=== PATIENT | male | born 1995 | race Caucasian/White ===

== ENCOUNTER 2023-06-30 18:57 | Emergency (ER) | payer BC, SELFPAY ==
[2023-06-30 19:00] VITALS: BP 132/78; PULSE 88; RESP 18; TEMP 36.6; O2SAT 99
--- NOTE | 2023-06-30 19:23 | ED.GENADULT ---
HPI - General Adult General Chief complaint: Wound/Laceration Stated complaint: hand laceration Time Seen by Provider: 06/30/23 19:15 History of Present Illness HPI narrative: this is a 27-year-old male presenting with laceration was right hand. Is trying to cut cheese when he stabbed himself in between his and index finger with a steak knife. Unknown last tetanus. No other injuries. No numbness tingling with this and. Related Data Allergies Allergy/AdvReac Type Severity Reaction Status Date / Time No Known Allergies Allergy Verified 06/30/23 19:22 Exam Narrative: APPEARANCE: No apparent distress. Head: atraumatic. EYES: EOMI, NOSE: Atraumatic NECK: Trachea midline RESPIRATORY: No increased rate of breathing CARDIOVASCULAR: RRR, ABDOMINAL: Non-distended MUSCULOSKELETAl: No obvious deformities NEURO: Alert. Moving 4/4 extremities SKIN:: 2 cm laceration skin between the thumb the index finger. No involvement of deeper structures. Full function in all directions of the index finger in the thumb. Sensation intact. Cap refill less than 2 seconds PSYCHIATRIC: Normal affect Medical Decision Making [facility] Narrative Medical decision making narrative: -Course: 27-year-old presenting with 2 cm laceration. Wound was cleaned and sutured. tetanus given. Discharged with return precautions Keflex pain control. Return in 10-14 days for suture removal. -DDX includes but is not limited to: -Procedures: 2 cm simple laceration repair with 4-0 nonabsorbable sutures x3 on the right hand between the thumb and index finger -Interventions: Tdap, Motrin Tylenol -Shared decision making / Disposition: discharged -RX Keflex, Motrin, Tylenol Discharge Plan Discharge Clinical Impression: Laceration Patient Disposition: Home, Self-Care Condition: Stable Instructions: Antibiotic Form, Care For Your Stitches (ED), Laceration (ED) Additional Instructions: Please take Keflex. Please use Motrin Tylenol for pain. Return if you develop redness/swelling other signs of infection. Sutures should be removed in 10-14 days. Prescriptions: New acetaminophen 500 mg tablet 1,000 mg PO TID PRN (Reason: agatha) 7 Days Qty: 42 0RF ibuprofen 800 mg tablet 800 mg PO TID PRN (Reason: pain) 7 Days Qty: 21 0RF cephalexin 500 mg capsule 500 mg PO Q12H Qty: 14 0RF Follow-up/Referrals: Harms,Lenin Randolph M.D. [Primary Care Provider] -
[2023-06-30] MEDS: TETANUS,DIPHTHERIA,AC PERTUSSIS ADULT 0.5 ML (ADACEL) IM (19:27)
[2023-06-30] MEDS: ACETAMINOPHEN 500 MG TABLET 1000 MG PO (19:28)
[2023-06-30] MEDS: IBUPROFEN 400 MG TABLET 800 MG PO (19:29)
[2023-06-30 19:45] VITALS: BP 130/72; PULSE 84; RESP 18; O2SAT 99
== END 2023-06-30 19:45 | disposition home or self-care (01) ==
PROVIDERS: Emergency Provider Emergency Medicine; PCP Family Medicine
DX: S61.411A Laceration without foreign body of right hand, initial encounter (principal); W26.0XXA Contact with knife, initial encounter; Z23 Encounter for immunization
CPT/HCPCS: 12001; 90471; 90715; 99283; A9270

== ENCOUNTER 2025-01-10 16:04 | Emergency (ER) | payer BC, SELFPAY ==
[2025-01-10 16:17] VITALS: BP 135/66; PULSE 76; RESP 16; TEMP 37; O2SAT 100
[2025-01-10 16:24] LABS: EDSTREPNEGPOS1 Positive (Negative)
--- NOTE | 2025-01-10 17:08 | ED.URI ---
HPI - URI/Sore Throat General Chief Complaint: Upper Respiratory Infection Stated Complaint: Sore Throat/Body Aches Time Seen by Provider: 01/10/25 16:45 Source: patient and RN notes reviewed Mode of arrival: ambulatory Limitations: no limitations History of Present Illness HPI Narrative: 29-year-old male patient presents Express Care complaining of sore throat, body aches fevers since yesterday. Patient denies any other upper respiratory symptoms, cough, chest pain, shortness of breath, nausea, vomiting, diarrhea, abdominal pain, or any other symptoms. Patient has been alternate with Tylenol and ibuprofen to help with symptoms. Patient denies any significant past medical history. Related Data Allergies Allergy/AdvReac Type Severity Reaction Status Date / Time No Known Allergies Allergy Verified 01/10/25 16:15 Review of Systems Review of Systems: CONSTITUTIONAL: Denies chills, or sweats. Positive for fevers and body aches. EYES: Denies visual changes, redness, or discharge. ENT: Denies rhinorrhea, congestion, or otalgia. Positive for sore throat. CARDIOVASCULAR: Denies chest pain, palpitations, or edema. RESPIRATORY: Denies cough or dyspnea. GASTROINTESTINAL: Denies abdominal pain, nausea, vomiting, or diarrhea. GENITOURINARY: Denies dysuria or hematuria. SKIN: Denies rash or itching. MUSCULOSKELETAL: Denies back pain, joint pain, or myalgia. NEUROLOGIC: Denies headache, numbness, or weakness. PSYCHIATRIC: Denies anxiety or depression. All other systems reviewed are negative, except as documented in HPI. PMFSH Comments At the time of my signature, I reviewed and agree with the nursing past medical, surgical, social, and family history. There is no relevant family history pertinent to the patient complaint. Exam Narrative: GENERAL: This is a well-nourished, well-developed adult, in no apparent distress. They are non ill-appearing, nontoxic appearing. HEAD: normocephalic, atraumatic. EYES: Sclera clear/white. Conjunctiva normal. Vision is grossly intact. Extraocular movements intact EARS: External ears normal, auditory canals clear and without drainage, TMs normal without perforation. Hearing grossly intact. NOSE: External nose normal with no obvious nasal discharge, nasal turbinates without redness, no rhinorrhea. THROAT: Mucous membranes moist, posterior pharynx erythematous. Uvula midline. NECK: Neck supple, non-tender without lymphadenopathy, masses or thyromegaly. CARDIOVASCULAR: Regular rate and rhythm without murmurs, gallops, or rubs. RESPIRATORY: Clear to auscultation. Breath sounds equal bilaterally. No wheezes, rales, or rhonchi. SKIN: warm, Dry, intact with no suspicious lesions or rash, good texture and turgor. NEURO: awake, alert, and oriented to person, place and time. There were no obvious focal neurologic abnormalities. EXTREMITIES: No joint tenderness, effusion, or edema noted. BACK: Nontender without deformity. Course Course Emergency Course: Portions of this record may have been created with voice recognition software Level of Care: Express Care Visit Vital Signs Vital signs: Vital Signs Temperature 98.6 F 01/10/25 16:17 Pulse Rate 76 01/10/25 16:17 Respiratory Rate 16 01/10/25 16:17 Blood Pressure 135/66 01/10/25 16:17 Pulse Oximetry 100 01/10/25 16:17 Oxygen Delivery Room Air 01/10/25 16:17 Temperature 98.6 F 01/10/25 16:17 Pulse Rate 76 01/10/25 16:17 Respiratory Rate 16 01/10/25 16:17 Blood Pressure 135/66 01/10/25 16:17 Pulse Oximetry 100 01/10/25 16:17 Oxygen Delivery Room Air 01/10/25 16:17 Reviewed MDM - URI/Sore Throat MDM Narrative Medical decision making narrative: Rapid strep positive. Will treat with amoxicillin. Discussed physical exam findings. Advised supportive measures and signs/symptoms to go to the ER. Pt is appropriate for outpt treatment and f/u. Differential Diagnosis Differential diagnosis: Likely upper respiratory infection, sinusitis, viral infection and pharyngitis Lab Data Attestation: I reviewed the patient's lab results. Labs: Lab Results 01/10/25 Range/Units 16:14 POC Grp A Strep Screen Positive (Negative) Critical Care Time Critical Care Time Critical Care Time: No Discharge Plan Discharge Clinical Impression: Pharyngitis Qualifiers: Pharyngitis/tonsillitis etiology: streptococcus Qualified Code(s): J02.0 - Streptococcal pharyngitis Patient Disposition: Home Condition: Stable Instructions: Antibiotic Form, Strep Throat (ED) Additional Instructions: You tested positive for strep throat. ?Please take the amoxicillin as prescribed until gone. ?You will be contagious for 24 hours after starting the medication. ?After 24 hours on antibiotics throw tooth brush away and start using a new one. Wash your sheets and cup/water bottle that is used daily. Do not share drinks. Take Tylenol or Ibuprofen as needed for pain or fever, follow instructions on the bottle. Rest and stay hydrated. ?Follow up with your PCP in 3 days if symptoms are not improving. ?Go to the ER immediately if you develop worsening symptoms such as shortness of breath, difficulty swallowing. ? Patient Language: Swedish Prescriptions: New amoxicillin 500 mg tablet 500 mg PO Q12H 10 Days Qty: 20 0RF No Action acetaminophen 500 mg tablet 1,000 mg PO TID PRN (Reason: agatha) 7 Days Qty: 42 0RF ibuprofen 800 mg tablet 800 mg PO TID PRN (Reason: pain) 7 Days Qty: 21 0RF cephalexin 500 mg capsule 500 mg PO Q12H Qty: 14 0RF Follow-up/Referrals: Harms,Lenin Randolph M.D. [Primary Care Provider] Time of Disposition: 16:56
--- OUTSIDE RECORDS SUMMARY | 2025-01-10 18:30 | XMS_ITS | Clinical Summary ---
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 May reduce to 2-3 times weekly when sweating and odor is reduced. 60 mL 1 2 Active Additional Information Patient not taking.Reported on 05/20/2024 cetirizine (ZyrTEC) 10 mg tablet Take 1 tablet (10 mg total) by mouth daily Active triamcinolone (KENALOG) 0.1 % cream Apply to affected area 1-2 times daily as needed. Avoid face and groin. 80 g 5 3 Active UNABLE TO FIND Immune Shot every month it has Vitamin B12, vitamin C last shot 02/16/2024 Active cefdinir (OMNICEF) 300 mg capsule Take 1 capsule (300 mg total) by mouth 2 (two) times a day 20 capsule 5 Active mometasone (NASONEX) 50 mcg/actuation nasal spray Administer 2 sprays into each nostril 2 (two) times a day 102 g 4 5 Active Active Problems Problem Noted Date Diagnosed Date Fever and chills 05/20/2024 Assessment & Plan (05/20/2024 10:28 AM SURFACE BOSS): COVID and influenza testing negative today. No abnormal findings on exam. Lungs clear, no measured fever. No evidence of ear infection. Discussed continued symptomatic treatment with rest, fluids and OTC fever/pain reducing medications. Follow-up if no improvement in the next 1-2 weeks or sooner if experiencing any new or worsening symptoms. Class 1 obesity due to exces s calories without serious comorbidity with body mass index (BMI) of 32.0 to 32.9 in adult 05/20/2024 Assessment & Plan (05/20/2024 10:29 AM SURFACE BOSS): Encouraged healthy diet and regular exercise Allergic rhinitis 05/20/2024 Assessment & Plan (05/20/2024 10:28 AM SURFACE BOSS): Patient with frequent allergy symptoms, runny nose, ear fullness, sore throat nasal congestion. States he is taking Zyrtec daily. He desires allergy testing, referral placed to allergy/immunology. Previously prescribed Flonase, states he did not tolerate Flonase as it caused him to feel dizzy. Will try Nasonex and monitor response. Immunizations Immunization Administration Dates Next Due Influenza, Unspecified 02/18/2024(Deferr ed: Patient Refused),11/22/2022(Deferred: Patient Refused),05/15/2022(Deferred: Patient Refused),11/22/2021(Deferred: Patient Refused),11/05/2021(Deferred: Patient Refused),11/05/2021(Deferred: Patient Refused),03/24/2021(Deferred: Patient Refused),11/22/2020(Deferred: Patient Refused),11/22/2020(Deferred: Patient Refused),03/24/2020(Deferred: Patient Refused),02/01/2019(Deferred: Patient Refused),03/30/2018(Deferred: Patient Refused),03/24/2018(Deferred: Patient Refused),03/25/2017(Deferred: Patient Refused) Tdap 06/30/2023 Medical History Medical History Date Comments Acid reflux Allergic rhinitis Family History Medical History Relation Name Comments Crohn's disease Father Crohn's dise ase; Other Mother Alive and well; Relation Name Status Comments Father Mother Alive Social History Tobacco Use Types Packs/Day Years Used Date Smoking Tobacco: Never Smokeless Tobacco: Never Tobacco Cessation:Counseling Given: Not Answered Alcohol Use Standard Drinks/Week Comments No 0 (1 standard drink = 0.6 oz pur e alcohol) AUDIT-C Answer Date Recorded Frequency of Alcohol Consumption Not on file 09/09/2022 Q2: How many drinks containi ng alcohol do you have on a typical day when you are drinking? Patient does not drink Frequency of Binge Drinking Not on file 08/22 PHQ-2 Answer Date Recorded PHQ-2 Total Score (If total score is 3 or more points, staff should administer the PHQ-9) 0 02/18/2024 Personal Safety Answer Date Recorded Have you ever been in or are you currently in a harmful physical or emotional relationship or is someone making you feel afraid or unsafe? Denies 09/09/2022 Sex and Gender Information Value Date Recorded Sex Assigned at Not on file Legal Sex Male 9:59 PM SURFACE BOSS Gender Identity Not on file Sexual Orientation Not on file Obstetrics History Last Filed Vital Signs Vital Sign Reading Time Taken Comments Blood Pressure 124/84 05/20/2024 9:47 AM SURFACE BOSS Pulse 69 05/20/2024 9:47 AM SURFACE BOSS Temperature 36.8 C (98.2 F) 05/20/2024 9:47 AM SURFACE BOSS Respiratory Rate 18 05/20/2024 9:47 AM SURFACE BOSS Oxygen Saturation 98% 05/20/2024 9:47 AM SURFACE BOSS Inhaled Oxygen Concentration - - Weight 110.2 kg (243 lb) 05/20/2024 9:47 AM SURFACE BOSS Height 182.9 cm (6' 0.01) 05/20/2024 9:47 AM CS T Body Mass Index 32.95 05/20/2024 9:47 AM SURFACE BOSS Plan of Treatment Health Maintenance Due Date Last Done Comments Hepatitis C Screening 1995 Varicella Vaccines (1 of 2 - 13+ 2-dose series) 12/09/2008 Hepatitis B Screening 12/09/2013 Regular Well Visit/Exam 18-64 12/09/2013 HPV Vaccines (1 - 3-dose SCDM series) 12/09/2022 Influenza Vaccine (#1) 2024 Depression Screening 02/17/2025 02/18/2024, 05/15/2022, 09/11/2021, Additional history exists DTaP/Tdap/Td Vaccine (2 - Td or Tdap) 06/29/2033 06/30/2023 Pneumococcal vaccine <65 Aged Out No longer eligible based on patient's age to complete this topic Insurance [employer] [place] [employer] [place] Advance Directives For more information, please contact: [phone] * Full Code (Latest Code Status on File) Date Activated Date Inactivated Comments 09/09/2022 8:05 AM 09/09/2022 3:01 PM Care Teams Met[employer] 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
--- OUTSIDE RECORDS SUMMARY | 2025-01-10 18:33 | XMS_ITS | Patient Health Record ---
Author Organization [facility] ([address]) Address [address] [place] [address] Care Team Providers Care Helpdesk Specialist Name Role Phone Rochelle Ceron Unavailable [phone] Allergies No Known Allergies Results Component Value Reference Range Notes INTERPRETATION Reviewed date:06/06/2024 06:59:49 PM Interpretation:Interpretation Performing Lab:[facility], [facility], [address] [address], [address] Candido Card MD Notes/Report: FASTING: UNKNOWN FASTING:UNKNOWN NON-FASTING; NON-FASTING INTERPRETATION Specific Level of Allergen IGE Class kU/L Specific IGE Antibody ----- --------- 0 <0.10 Absent/Undetectable 0/1 0.10-0.34 Very Low Level 1 0.35-0.69 Low Level 2 0.70-3.49 Moderate Level 3 3.50-17.4 High Level 4 17.5-49.9 Very High Level 5 50-100 Very High Level 6 >100 Very High Level The clinical relevance of allergen results of 0.10-0.34 kU/L are undetermined and intended for specialist use. Allergens denoted with a include results using one or more analyte specific reagents. In those cases, the test was developed and its analytical performance characteristics have been determined by [facility]. It has not been cleared or approved by the U.S. Food and Drug Administration. This assay has been validated pursuant to the CLIA regulations and is used for clinical purposes. STREPTOCOCCUS PNEUMONIAE AB (IGG) (23 SEROTYPES) Reviewed date:06/07/2024 02:11:12 PM Interpretation:Abnormal Performing Lab:[facility], [facility],, [address], [place], [address] Willa Rodgers MD,PhD,GINA Notes/Report: FASTING: UNKNOWN FASTING:UNKNOWN NON-FASTING; NON-FASTING SEROTYPE 1 (1) 0.4 SEROTYPE 2 (2) <0.3 SEROTYPE 3 (3) <0.3 SEROTYPE 4 (4) <0.3 SEROTYPE 5 (5) 1.0 SEROTYPE 8 (8) <0.3 SEROTYPE 9 (9N) <0.3 SEROTYPE 12 (12F) 0.4 SEROTYPE 14 (14) <0.3 SEROTYPE 17 (17F) <0.3 SEROTYPE 19 (19F) 0.8 SEROTYPE 20 (20) 1.1 SEROTYPE 22 (22F) 2.5 SEROTYPE 23 (23F) 2.1 SEROTYPE 26 (6B) <0.3 SEROTYPE 34 (10A) 2.9 SEROTYPE 43 (11A) 5.0 SEROTYPE 51 (7F) 0.6 SEROTYPE 54 (15B) <0.3 SEROTYPE 56 (18C) 0.4 SEROTYPE 57 (19A) 2.4 SEROTYPE 68 (9V) <0.3 SEROTYPE 70 (33F) <0.3 Serologic correlates of protection against pneumococcal disease have not been rigorously established for all patient populations. Published data and expert consensus (including WHO) suggest protection from invasive disease usually occurs at levels >or =0.3-0.50 mcg/mL for healthy children receiving pneumococcal conjugate vaccines. Higher titers may be necessary to protect from non-invasive infection (e.g., pneumonia, otitis, sinusitis). Expert opinion suggests that a cut-off of >= 1.3 mcg/mL may be a more relevant value to assess antibody responses after pneumococcal polysaccharide vaccines or for immunocompromised patients. In addition to antibody quantity, protection also depends on antibody avidity and opsonophagocytic activity. Some experts consider that post-vaccination (4-6 weeks) IgG seroconversion and/or 2- to 4-fold rise in IgG titers for >50% to 70% of vaccine serotypes demonstrates a normal post-vaccine serologic response. Persons with high initial serotype-specific titers may have less robust responses. [facility] uses a multi-analyte immunodetection (MAID) method. The method employs the Luminex flow cytometric system which measures multiple analytes simultaneously. The FDA standard reference serum 89-S is used as the calibration standard. Results are reported in mcg/mL. This assay detects all of the 23 of the serotypes in the 23-valent polysaccharide vaccine and 12 of the 13 serotypes in the 13-valent conjugate vaccine. This test was developed and its analytical performance characteristics have been determined by [facility]. It has not been cleared or approved by FDA. This assay has been validated pursuant to the CLIA regulations and used for clinical purposes. For additional information, please refer to http://education.CheckInPages.c om/faq/QZH818 (This link is being provided for informational/ educational purposes only.) DIPHTHERIA AND TETANUS ANTIT OXOIDS Reviewed date:06/09/2024 02:52:20 PM Interpretation:Normal Performing Lab:[facility],, [address] [place], [address] Willa Rodgers MD,PhD,GINA Notes/Report: FASTING: NO FASTING:NO NON-FASTING; NON-FASTING; NON-FASTING DIPHTHERIA ANTITOXOID 0.76 REFERENCE RANGE: 0.10 IU/mL or greater Interpretive Criteria <0.10 IU/mL Nonprotective Antibody Level > Or = 0.10 IU/mL Protective Antibody Level Antibody levels > or = 0.10 IU/mL are considered protective. After a primary series of three properly spaced diphtheria toxoid doses in adults or four doses in infants, a protective level of antitoxin (defined as > or = 0.10 IU of antitoxin/mL) is reached in more than 95% of immunized persons. This test was developed and its analytical performance characteristics have been determined by [facility]. It has not been cleared or approved by FDA. This assay has been validated pursuant to the CLIA regulations and is used for clinical purposes. TETANUS ANTITOXOID 4.69 REFERENCE RANGE: 0.10 IU/mL or greater Antibody levels > or = 0.10 IU/mL are considered protective. However, tetanus can still occur in some individuals with such antibody levels. These results should not be used to determine the necessity to administer antitoxin when clinically indicated. This test was developed and its analytical performance characteristics have been determined by [facility]. It has not been cleared or approved by FDA. This assay has been validated pursuant to the CLIA regulations and is used for clinical purposes. H. INFLUENZAE TYPE B AB Reviewed date:06/09/2024 02:51:53 PM Interpretation:Abnormal Performing Lab:[facility],, [address] [place], [address] Willa Rodgers MD,PhD,GINA Notes/Report: FASTING: NO FASTING:NO NON-FASTING HAEMOPHILUS INFLUENZA TYPE B ANTIBODY (IGG) 0.50 REFERENCE RANGE: > or = 1.00 mcg/mL INTERPRETIVE CRITERIA: <0.15 mcg/mL Nonprotective Antibody Level 0.15 - 0.99 mcg/mL Indeterminate for protective antibody > or = 1.00 mcg/mL Protective Antibody Level IgG antibody to polyribosylribitol phosphate (PRP), the capsular polysaccharide of Haemophilus influenzae type b, is measured in micrograms/mL (mcg/mL), based on correlations with a reference Pooja radioimmunoprecipitation assay (JANETTE). The exact level of antibody needed for protection from infection has not been clarified; values ranging from 0.15 mcg/mL to 1.00 mcg/mL have been reported. A four-fold increase in the PRP IgG antibody level between pre-vaccination and post-vaccination sera is considered evidence of effective immunization. RESPIRATORY ALLERGY PROFILE REGION VIII: [place], [place] Reviewed date:06/06/2024 07:00:05 PM Interpretation:Normal Performing Lab:[facility], [address] [place], [address] Candido Card MD Notes/Report: NON-FASTING; NON-FASTING FASTING:UNKNOWN FASTING: UNKNOWN DERMATOPHAGOIDES PTERONYSSINUS (D1) IGE <0.10 CLASS 0 DERMATOPHAGOIDES FARINAE (D2) IGE <0.10 CLASS 0 PENICILLIUM NOTATUM (M1) IGE <0.10 CLASS 0 CLADOSPORIUM HERBARUM (M2) IGE <0.10 CLASS 0 ASPERGILLUS FUMIGATUS (M3) IGE <0.10 CLASS 0 ALTERNARIA ALTERNATA (M6) IGE <0.10 CLASS 0 COCKROACH (I6) IGE <0.10 CLASS 0 MAPLE (BOX ELDER) (T1) IGE <0.10 CLASS 0 M[place] (T6) IGE <0.10 CLASS 0 [place] TREE (T10) IGE <0.10 CLASS 0 [place] (T11) IGE <0.10 CLASS 0 [place] (T14) IGE <0.10 CLASS 0 WHITE ZAHRAA (T15) IGE <0.10 CLASS 0 [place]AK (T7) IGE <0.10 CLASS 0 ELM (T8) IGE <0.10 CLASS 0 HICKORY/PECAN TREE (T22) IGE <0.10 CLASS 0 WHITE MULBERRY (T70) IGE <0.10 CLASS 0 BERMUDA GRASS (G2) IGE <0.10 CLASS 0 ELIZABETH GRASS (G6) IGE <0.10 CLASS 0 COMMON RAGWEED (SHORT) (W1) IGE <0.10 CLASS 0 ROUGH PIGWEED (W14) IGE <0.10 CLASS 0 UKRAINIAN THISTLE (W11) IGE <0.10 CLASS 0 ROUGH PAK ELDER (W16) IGE <0.10 CLASS 0 MOUSE URINE PROTEINS (E72) IGE <0.10 CLASS 0 IMMUNOGLOBULIN E 36 <JG=778 kU/L CAT DANDER (E1) IGE <0.10 CLASS 0 DOG DANDER (E5) IGE <0.10 CLASS 0 VITAMIN D, 25-OH, TOTAL, IA Reviewed date:06/08/2024 09:18:00 AM Interpretation:Abnormal Performing Lab:[facility], [facility] [address] [place] [address], [facility] [address], [place], [phone] Arielle Griggs Notes/Report: NON-FASTING; NON-FASTING; NON-FASTING FASTING:NO FASTING: NO VITAMIN D, 25-OH, TOTAL 29.5 >29.9 ng/mL This test was developed and its analytical performance characteristics have been determined by [facility]. It has not been cleared or approved by the U.S. Food and Drug Administration. This assay has been validated pursuant to the CLIA regulations and is used for clinical purposes. Vitamin D, 25-Hydroxy reports concentrations of two common forms, 25-OHD2 and 25-OHD3. 25-OHD3 indicates both endogenous production and supplementation. 25-OHD2 is an indicator of exogenous sources, such as diet or supplementation. Therapy is based on measurement of Total 25-OHD, with levels <20 ng/mL indicative of Vitamin D deficiency, while levels between 20 ng/mL and 30 ng/mL suggest insufficiency. Optimal levels are >=30 ng/mL. Vitamin D, 25-Hydroxy reports concentrations of two common forms, 25-OHD2 and 25-OHD3. 25-OHD3 indicates both endogenous production and supplementation. 25-OHD2 is an indicator of exogenous sources, such as diet or supplementation. Therapy is based on measurement of Total 25-OHD, with levels <20 ng/mL indicative of Vitamin D deficiency, while levels between 20 ng/mL and 30 ng/mL suggest insufficiency. Optimal levels are > or = 30 ng/mL. VITAMIN D, 25-OH, D3 29.5 This test was developed and its analytical performance characteristics have been determined by [facility]. It has not been cleared or approved by the FDA. This assay has been validated pursuant to the CLIA regulations and is used for clinical purposes. VITAMIN D, 25-OH, D2 <1.0 This test was developed and its analytical performance characteristics have been determined by [facility]. It has not been cleared or approved by the FDA. This assay has been validated pursuant to the CLIA regulations and is used for clinical purposes. IMMUNOGLOBULINS A/E/G/M,SERU M Reviewed date:06/08/2024 09:17:40 AM Interpretation:Abnormal Performing Lab:[facility], [facility], [address] [place], [address] Candido Card MD Notes/Report: NON-FASTING; NON-FASTING; NON-FASTING FASTING:NO FASTING: NO IMMUNOGLOBULIN A 142 47-310 mg/dL IMMUNOGLOBULIN E 38 <NI=022 kU/L IMMUNOGLOBULIN G 256 335-0580 mg/dL IMMUNOGLOBULIN M 46 50-300 mg/dL Reason For Referral No Information Medications Medication SIG (Take, Route, Frequency, Duration) Notes Start Date End Date Status Ipratropium [place] 0.06 % 2 sprays in e ach nostril Nasally Two times a day; Duration: 30 days Active Social History Tobacco Use: Social History Observation Description Date Details (start date - stop date) Never Smoker NA - NA Sex Assigned At : Social History Observation Description Sex Assigned At Male Tobacco Control (Standard) Question Answer Notes Tobacco use: Nonsmoker Problems Problem Type SNOMED Code ICD Code Onset Dates Problem Status W/U Status Risk Notes Problem Vitamin D deficiency (44101419) Vitamin D deficiency, unspecified (E55.9) Active confirmed Problem Chronic rhinitis (84318313) Chronic rhinitis (J31.0) Active confirmed Problem Chronic sinusitis (45619631) Chronic sinusitis, unspecified (J32.9) Active confirmed Problem Hypertrophy of nasal turbinates (84958026) Hypertrophy of nasal turbinates (J34.3) Active confirmed Vital Signs Oximetry 99 % 07/06/2024 Blood pressure diastolic 85 mm Hg 07/06/2024 Height 70 in 07/06/2024 Blood pressure systolic 135 mm Hg 07/06/2024 Weight 248.2 lbs 07/06/2024 BMI 35.61 kg/m2 07/06/2024 Encounters Encounter Location Date Provider Diagnosis [facility] [address] [place] [phone] 07/06/2024 Rochelle Ceron Chronic sinusitis, unspecified J32.9 ; Vitamin D deficiency, unspecified E55.9 ; Hypertrophy of nasal turbinates J34.3 ; Chronic rhinitis J31.0 and Elevated blood-pressure reading, without diagnosis of hypertension R03.0 [facility] [employer] [address] [place] [phone] 06/01/2024 Rochelle Ceron Hypertrophy of nasal turbinates J34.3 ; Chronic rhinitis J31.0 ; Chronic sinusitis, unspecified J32.9 ; Vitamin D deficiency, unspecified E55.9 and Elevated blood-pressure reading, without diagnosis of hypertension R03.[address] [phone] 06/15/2024 Rochelle Ceron Assessments Encounter Date Diagnosis (ICD Code) Assessment Notes Treatment Notes Treatment Clinical Notes Section Notes 06/01/2024 Hypertrophy of nasal turbinates (ICD-10 - J34.3) Travis presents with upper airway symptoms concerning for uncontrolled atopic disease. His symptoms worsen in the Spring and Fall, though occur year round. 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 - Discussed skin testing, however deferred due to high OOP cost. Will obtain ImmunoCaps with modified PIDD work-up as below. Consider additional testing pending laboratory review. - Start trial of ipratropium bromide. - Follow-up in 4 weeks for laboratory review 06/01/2024 Chronic rhinitis (ICD-10 - J31.0) See plan above 07/06/2024 Chronic sinusitis, unspecified (ICD-10 - J32.9) Travis endorses frequent sinus infections meeting JMF criteria for modified PIDD work-up. - Work-up shows inadequate protection to S. Pneumo (12/14) and H. Influenzae. Due to this recommend Pneumovax and HiB booster. - Travis is considering at this time 07/06/2024 Vitamin D deficiency, unspecified (ICD-10 - E55.9) Borderline vitamin D level at 29. Start supplementation with 2,000 IU/day x 4-6 weeks, we will then repeat level. Take vitamin D with a fatty meal 07/06/2024 Hypertrophy of nasal turbinates (ICD-10 - J34.3) Travis presents with upper airway symptoms concerning for uncontrolled atopic disease. His symptoms worsen in the Spring and Fall, though occur year round. 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 - Discussed skin testing, however deferred due to high OOP cost. Obtained ImmunoCaps that returned negative, total IgE 36. Discussed obtaining boosters as above, if symptoms persist consider additional testing vs updated ENT consult. - Continue ipratropium bromide, which Travis feels is subjectively beneficial. 06/01/2024 Chronic sinusitis, unspecified (ICD-10 - J32.9) Travis endorses frequent sinus infections meeting JMF criteria for modified PIDD work-up. - Will plan on boosters/Vitamin D supplementation based on results 06/01/2024 Vitamin D deficiency, unspecified (ICD-10 - E55.9) Rule out for immune work-up as above 07/06/2024 Chronic rhinitis (ICD-10 - J31.0) See plan above 07/06/2024 Elevated blood-pressure reading, without diagnosis of hypertension (ICD-10 - R03.0) BP elevated today without symptoms of urgency or emergency. Continue serial checks and follow-up with PCP 06/01/2024 Elevated blood-pressure reading, without diagnosis of hypertension (ICD-10 - R03.0) BP elevated today without symptoms of urgency or emergency. Continue serial checks and follow-up with PCP 07/06/2024 Other 06/01/2024 Other Plan Of Treatment Pending Test Test Name Order Date STREPTOCOCCUS PNEUMONIAE IGG AB (23 SERO TYPES) 06/01/2024 DIPHTHERIA ANTITOXOID AND TETANUS ANTITO XOID ANTIBODIES 06/01/2024 HAEMOPHILUS INFLUENZAE B ANTIBODY, IGG 0 06/01/2024 Insurance Providers Payer Name Payer Address Payer Phone Subscriber Number Group Number Insured Name Patient Relationship to Insured Coverage Start Date Coverage End Date [facility] [address] [place] [address] [phone] [id number] Travis Carmona Self - patient is the insured 2
== END 2025-01-10 17:02 | disposition home or self-care (01) ==
PROVIDERS: PCP Family Medicine
DX: J02.0 Streptococcal pharyngitis (principal)
CPT/HCPCS: 87880; 99203; G0463